=== PATIENT | male | born 1940 | race Caucasian/White ===

== ENCOUNTER → 2017-05-06 | Outpatient (CLI) | payer MEDICARE, OTHER ==
[~2017-05-06] MED LIST: DICL75ER; Hair, Skin & N1 EACH; TRAM50; TRAZ100
== END ==
LOC: LAB SHORT 13:58 → PLD 13:58
DX: C44.42 Squamous cell carcinoma of skin of scalp and neck (principal)
CPT/HCPCS: 88305

== ENCOUNTER 2017-07-13 14:09 | Day surgery (SDC) | payer MEDICARE, OTHER ==
[~2017-07-13] VITALS: Ht 177.8 cm; Wt 84.6 kg
== END 2017-07-13 16:32 | disposition home or self-care (01) ==
LOC: ORSCSDS 14:09
PROVIDERS: Surgery
PROC: 0DJD8ZZ Inspection of Lower Intestinal Tract, Via Natural or Artificial Opening Endoscopic (ICD-10-PCS; principal; 2017-07-13 15:30)
DX: Z12.11 Encounter for screening for malignant neoplasm of colon (principal); K57.30 Diverticulosis of large intestine without perforation or abscess without bleeding; I10 Essential (primary) hypertension; E78.5 Hyperlipidemia, unspecified; Z87.891 Personal history of nicotine dependence; Z79.899 Other long term (current) drug therapy
CPT/HCPCS: J2405; J7120

== ENCOUNTER → 2019-07-30 | Outpatient (CLI) | payer MEDICARE, OTHER ==
[2019-07-30 14:20] LABS: Campylobacter Sp Not Detected (NOT DETECT)
[2019-07-30 14:21] LABS: Adenovirus F 40/41 Not Detected (NOT DETECT); Astrovirus Not Detected (NOT DETECT); Cryptosporidium Not Detected (NOT DETECT); Cyclospora Cayetanensis Not Detected (NOT DETECT); E. Coli O157 Not Detected (NOT DETECT); Entamoeba Histolytica Not Detected (NOT DETECT); Enteroaggregative E. coli-EAEC Not Detected (NOT DETECT); Enteropathogenic E. coli-EPEC Not Detected (NOT DETECT); Enterotoxigenic E. coli-ETEC Not Detected (NOT DETECT); Giardia Lamblia Not Detected (NOT DETECT); Norovirus GI/GII Not Detected (NOT DETECT); Plesiomonas Shigelloides Detected (NOT DETECT); Rotavirus A Not Detected (NOT DETECT); Salmonella Sp Not Detected (NOT DETECT); Sapovirus Not Detected (NOT DETECT); Shiga Toxin-prod E. coli-STEC Not Detected (NOT DETECT); Shigella/Enteroin E. coli-EIEC Not Detected (NOT DETECT); Vibrio Cholerae Not Detected (NOT DETECT); Vibrio Sp Not Detected (NOT DETECT); Yersinia Enterocolitica Not Detected (NOT DETECT)
== END | disposition home or self-care (01) ==
LOC: LAB EV 05:30 → LAB SHORT 05:30
PROVIDERS: Physician Assistant Medical
DX: R19.7 Diarrhea, unspecified (principal)
CPT/HCPCS: 0097U

== ENCOUNTER → 2020-11-16 | Outpatient (CLI) | payer MEDICARE, OTHER ==
[~2020-11-16] MED LIST changes: +MICROZIDE12.5 MG; +PANT20 PO; +POTA10T PO
[2020-11-16 13:31] LABS: BASOPHILS ABSOLUTE AUTO 0.05 K/mm3 (0.00-0.23); BASOPHILS PERCENT AUTO 0 % (0-2); EOSINOPHILS ABSOLUTE AUTO 0.25 K/mm3 (0.00-0.68); EOSINOPHILS PERCENT AUTO 2 % (0-6); Hematocrit 42.9 % (37.0-53.0); Hemoglobin 14.3 g/dL (13.5-17.5); IMMATURE GRAN ABSOLUTE AUTO 0.03 K/mm3 (0.00-0.10); IMMATURE GRAN PERCENT AUTO 0 % (0-1); LYMPHOCYTES PERCENT AUTO 20 % (21-46); MONOCYTES ABSOLUTE AUTO 0.94 K/mm3 (0.16-1.47); MONOCYTES PERCENT AUTO 8 % (4-13); Mean Corpuscular HGB 29.1 pg (26.0-34.0); Mean Corpuscular HGB Conc 33.3 g/dL (31.5-36.5); Mean Corpuscular Volume 87 fL (80-100); Mean Platelet Volume 10.4 fL (9.1-12.4); NEUTROPHILS ABSOLUTE AUTO 8.49 K/mm3 (1.96-9.15); NEUTROPHILS PERCENT AUTO 70 % (41-73); Platelet Count 317 K/mm3 (150-400); RDW Coefficient Variation 13.4 % (11.7-14.2); RDW Standard Deviation 42.9 fL (35.1-46.3); Red Blood Cell Count 4.91 M/mm3 (4.30-5.90); White Blood Cell Count 12.16 K/mm3 (4.00-11.30)
[2020-11-16 14:12] LABS: Alanine Aminotransfer (ALT/SGP 23 U/L (12-78); Albumin, Blood 3.5 g/dL (3.4-5.0); Alk Phos 101 U/L (50-136); Anion Gap 6 mmol/L (6-16); Aspartate Aminotrans (AST/SGOT 20 U/L (12-37); Bilirubin, Total 0.4 mg/dL (0.1-1.0); Blood Urea Nitrogen 19 mg/dL (8-24); CO2, Blood 24 mmol/L (21-32); Chloride, Blood 110 mmol/L (98-108); Creatinine, Blood 1.12 mg/dL (0.60-1.20); Globulin, Blood 3.6 g/dL (2.2-4.0); Glomerular Filtration Rate >60 (60-); Glucose, Blood 110 mg/dL (70-99); Potassium, Blood 4.6 mmol/L (3.5-5.5); Sodium, Blood 140 mmol/L (136-145); Total Protein, Blood 7.1 g/dL (6.4-8.2)
== END | disposition home or self-care (01) ==
LOC: LAB SHORT 12:23 → LAB 12:23
PROVIDERS: Physician Assistant
DX: R03.0 Elevated blood-pressure reading, without diagnosis of hypertension (principal)
CPT/HCPCS: 80053; 85025

== ENCOUNTER → 2021-02-28 | Outpatient (CLI) | payer MEDICARE, OTHER ==
[2021-02-28 15:00] LABS: BASOPHILS ABSOLUTE AUTO 0.05 K/mm3 (0.00-0.23); BASOPHILS PERCENT AUTO 0 % (0-2); EOSINOPHILS ABSOLUTE AUTO 0.37 K/mm3 (0.00-0.68); EOSINOPHILS PERCENT AUTO 3 % (0-6); Hematocrit 42.9 % (37.0-53.0); IMMATURE GRAN ABSOLUTE AUTO 0.03 K/mm3 (0.00-0.10); IMMATURE GRAN PERCENT AUTO 0 % (0-1); LYMPHOCYTES ABSOLUTE AUTO 2.34 K/mm3 (0.84-5.20); LYMPHOCYTES PERCENT AUTO 20 % (21-46); MONOCYTES ABSOLUTE AUTO 0.86 K/mm3 (0.16-1.47); MONOCYTES PERCENT AUTO 7 % (4-13); Mean Corpuscular HGB 28.6 pg (26.0-34.0); Mean Corpuscular HGB Conc 32.6 g/dL (31.5-36.5); Mean Corpuscular Volume 88 fL (80-100); Mean Platelet Volume 10.6 fL (9.1-12.4); NEUTROPHILS ABSOLUTE AUTO 7.98 K/mm3 (1.96-9.15); NEUTROPHILS PERCENT AUTO 69 % (41-73); Platelet Count 324 K/mm3 (150-400); RDW Coefficient Variation 14.4 % (11.7-14.2); White Blood Cell Count 11.63 K/mm3 (4.00-11.30)
[2021-02-28 15:14] LABS: Alanine Aminotransfer (ALT/SGP 23 U/L (12-78); Albumin, Blood 3.1 g/dL (3.4-5.0); Albumin/Globulin Ratio 0.8 (0.8-1.8); Alk Phos 95 U/L (50-136); Anion Gap 6 mmol/L (6-16); Aspartate Aminotrans (AST/SGOT 26 U/L (12-37); Bilirubin, Total 0.4 mg/dL (0.1-1.0); Blood Urea Nitrogen 16 mg/dL (8-24); Bun/Creatinine Ratio 13.7 (12.0-20.0); CO2, Blood 25 mmol/L (21-32); Calcium, Blood 8.8 mg/dL (8.5-10.1); Chloride, Blood 109 mmol/L (98-108); Creatinine, Blood 1.17 mg/dL (0.60-1.20); Globulin, Blood 3.8 g/dL (2.2-4.0); Glomerular Filtration Rate >60 (60-); Glucose, Blood 117 mg/dL (70-99); Potassium, Blood 4.3 mmol/L (3.5-5.5); Sodium, Blood 140 mmol/L (136-145); Total Protein, Blood 6.9 g/dL (6.4-8.2)
== END | disposition home or self-care (01) ==
LOC: LAB SHORT 09:50 → LAB 09:50
PROVIDERS: Physician Assistant
DX: D72.829 Elevated white blood cell count, unspecified (principal); Z79.899 Other long term (current) drug therapy
CPT/HCPCS: 80053; 85025

== ENCOUNTER 2024-07-14 10:31 | Day surgery (SDC) | payer MEDICARE, OTHER ==
[~2024-07-14] VITALS: Ht 175.3 cm; Wt 68.8 kg
[~2024-07-14 10:31] MED LIST changes: +Lactated Ringer's 1,000 ML IV ONE; -TRAZ100; +TRAZ50 PO; +propofoL 50 ML IV ONE
[2024-07-14] MEDS ORDERED: Vitamin D1000 UNI1 PO (11:03)
[2024-07-14] MEDS ORDERED: MAGNESIUM CITR125 MG (11:03)
[2024-07-14] MEDS ORDERED: LORA10ER PO (11:04)
[2024-07-14] MEDS ORDERED: Lactated Ringer's 1,000 ML IV ONE ×3 (11:34→14:20)
[2024-07-14] MEDS ORDERED: Ondansetron HCl 2 MG / ML 2ML Vial ONE (13:40)
[2024-07-14] MEDS ORDERED: propofoL 50 ML IV ONE (13:40)
[2024-07-14 15:31] VITALS: BP 106/66
--- NOTE | 2024-07-14 15:41 | NUR ---
07/14/24 1541 Stephan Hernandez 3 LEAD EKG SHOWED CONVERSION INTO AFIB. NO PHX OF AFIB. ORDERED 12 LEAD EKG IN STEP-DOWN.
--- NOTE | 2024-07-14 15:52 | NUR ---
07/14/24 1552 Stephan Hernandez 12 LEAD EKG READ AFIB, THIS RN ASKED DR. ARAGON, CLINICAL REVIEWER, FOR SECOND OPINION D/T HR REGULAR ON SPO2 MONITOR, 64-66 HR. AFTER EVALUATION AND ASSESSMENT OF 12 EKG, DR. ARAGON DETERMINIED PT NOT IN AFIB, PT HAS SINUS RHYTHM WITH SINUS ARRHYTHMIA. PT WAS SHIVERING AND STATED THEY WERE "COLD", THIS RN AND CARLA YOUNG BROUGHT PT WARM BLANKETS AND ATTACHED A BEAR HUGGER WARMER UNDER BLANKETS WITH GOOD EFFECT. REPORT GIVEN TO CARLA ZIMMER TO DISCHARGE PATIENT.
[2024-07-15] MEDS ORDERED: Acetaminophen650 M1 PO (09:20)
[2024-07-15] MEDS ORDERED: Vitamin B Comple1 EA PO (09:20)
[2024-07-15] MEDS ORDERED: FLONASE ALLERG9.9 M2 (09:22)
[2024-07-15] MEDS ORDERED: MAGNESIUM CITR125 MG PO (09:24)
== END 2024-07-14 15:33 | disposition home or self-care (01) ==
LOC: ORSCSDS 10:31
PROVIDERS: Internal Medicine Gastroenterology
PROC: 0DB98ZX Excision of Duodenum, Via Natural or Artificial Opening Endoscopic, Diagnostic (ICD-10-PCS; principal; 2024-07-14 12:00)
PROC: 0D7B8ZZ Dilation of Ileum, Via Natural or Artificial Opening Endoscopic (ICD-10-PCS; principal; 2024-07-14 12:00)
PROC: 0DBB8ZX Excision of Ileum, Via Natural or Artificial Opening Endoscopic, Diagnostic (ICD-10-PCS; principal; 2024-07-14 12:00)
PROC: 0DB78ZX Excision of Stomach, Pylorus, Via Natural or Artificial Opening Endoscopic, Diagnostic (ICD-10-PCS; principal; 2024-07-14 12:00)
PROC: 0DBE8ZX Excision of Large Intestine, Via Natural or Artificial Opening Endoscopic, Diagnostic (ICD-10-PCS; principal; 2024-07-14 12:00)
DX: K52.9 Noninfective gastroenteritis and colitis, unspecified (principal); R93.3 Abnormal findings on diagnostic imaging of other parts of digestive tract; K56.699 Other intestinal obstruction unspecified as to partial versus complete obstruction; K44.9 Diaphragmatic hernia without obstruction or gangrene; K57.30 Diverticulosis of large intestine without perforation or abscess without bleeding; K64.4 Residual hemorrhoidal skin tags; K29.80 Duodenitis without bleeding; E78.5 Hyperlipidemia, unspecified; I12.9 Hypertensive chronic kidney disease with stage 1 through stage 4 chronic kidney disease, or unspecified chronic kidney disease; N18.31 Chronic kidney disease, stage 3a; Z79.899 Other long term (current) drug therapy; Z87.891 Personal history of nicotine dependence
CPT/HCPCS: 88305; 88342; 93005; 93010; C1726; J2405; J2704; J7120

== ENCOUNTER 2024-08-02 13:27 | Day surgery (SDC) | payer MEDICARE, OTHER ==
[2024-08-02] VITALS (11 sets, daily range): BP systolic 86–132; BP diastolic 49–81
[~2024-08-02] VITALS: Ht 175.3 cm; Wt 67.9 kg
[~2024-08-02 13:27] MED LIST changes: +ALBU90OI INH; +Acetaminophen650 M1 PO; +FLONASE ALLERG9.9 M2; +LORA10ER PO; -Lactated Ringer's 1,000 ML IV ONE; +MAGNESIUM CITR125 MG; +MAGNESIUM CITR125 MG PO; +TRAM50 PO; +Vitamin B Comple1 EA PO; +Vitamin D1000 UNI1 PO; -propofoL 50 ML IV ONE
[2024-08-02] MEDS ORDERED: Lactated Ringer's 1,000 ML IV SCH (13:40)
[2024-08-02] MEDS ORDERED: CeFAZolin Sodium 2,000 MG VIAL ONE (14:04)
[2024-08-02] MEDS ORDERED: CeFAZolin Sodium 2,000 MG in NS 100 ML IV SCH (14:05)
[2024-08-02] MEDS ORDERED: Bupivacaine 0.5% HCl 5 MG/ML 30MLVIAL ONE (14:28)
--- NOTE | 2024-08-02 14:28 | NUR ---
Ambulatory in Day Surgery. History, Chart, Medications and Allergies reviewed before start of procedure. Patient confirms NPO status and agrees with scheduled surgery. Patient reports completing Chlorhexadine shower X2 prior to admission to hospital. Surgical site prepped with 2% Chlorhexidine cloth wipe. Patient States Post-Procedure ride home has been arranged.
[2024-08-02] MEDS ORDERED: propofoL 20 ML IV ONE (15:06)
[2024-08-02] MEDS ORDERED: Midazolam HCl 1MG / ML 2ML Vial ONE (15:06)
[2024-08-02] MEDS ORDERED: FentaNYL Citrate 50 MCG/ML 2 ML Injection ONE (15:06)
[2024-08-02] MEDS ORDERED: Ondansetron HCl 2 MG / ML 2ML Vial ONE (15:07)
[2024-08-02] MEDS ORDERED: Dexamethasone Sod Phos 10 MG/ML 1ML VIAL ONE (15:07)
[2024-08-02] MEDS ORDERED: Rocuronium Bromide 10 MG/ML 5ML Injection IV ONE ×2 (15:07→16:50)
[2024-08-02] MEDS ORDERED: Bupivacaine 0.25% Epi 1:200000 30 ML Vial ONE (15:09)
[2024-08-02] MEDS ORDERED: HYDROmorphone HCl 0.5 MG/0.5 ML SYR ONE (15:32)
[2024-08-02] MEDS ORDERED: Albuterol 2.5 MG/3 ML VIAL INH PRN (15:35)
[2024-08-02] MEDS ORDERED: Prochlorperazine Edisylate 10 mg Vial IV PRN (15:35)
[2024-08-02] MEDS ORDERED: Ondansetron HCl 2 MG / ML 2ML Vial IV PRN (15:35)
[2024-08-02] MEDS ORDERED: HYDROmorphone HCl/Pf 1MG SYR IV PRN (15:35)
[2024-08-02] MEDS ORDERED: FentaNYL Citrate 50 MCG/ML 2 ML Injection IV PRN ×2 (15:35→15:40)
[2024-08-02] MEDS ORDERED: HYDROmorphone HCl 0.5 MG/0.5 ML SYR IV PRN (15:35)
[2024-08-02] MEDS ORDERED: ePHEDrine Sulfate 50 MG/ML 1ML Injection IV PRN (15:40)
[2024-08-02] MEDS ORDERED: Sugammadex Sodium 200 MG/2ML SDV (100 MG/ML) ONE (16:52)
[2024-08-02] MEDS ORDERED: OxyCODONE 5 mg/Acetamin 325 mg TABLET PO PRN (17:40)
--- NOTE | 2024-08-02 18:15 | NUR ---
PATIENT ORIENTED. DISCHARGE PAPERWORK PROVIDED. IV D/C, HUB INTACT. PATIENT AND SPOUSE AWARE OF INSTRUCTIONS. RIDE PROVIDED BY SPOUSE. WHEEL CHAIR OUT TO CAR. BELONGINGS WITH PATIENT.
== END 2024-08-02 23:16 | disposition home or self-care (01) ==
LOC: ORSCMMR 13:27 → ORD 15:00 → ORSCMMR 15:00
PROVIDERS: Surgery
PROC: 0YU54JZ Supplement Right Inguinal Region with Synthetic Substitute, Percutaneous Endoscopic Approach (ICD-10-PCS; principal; 2024-08-02 15:00)
PROC: 0YU74JZ Supplement Right Femoral Region with Synthetic Substitute, Percutaneous Endoscopic Approach (ICD-10-PCS; principal; 2024-08-02 15:00)
PROC: 3E0T3BZ Introduction of Anesthetic Agent into Peripheral Nerves and Plexi, Percutaneous Approach (ICD-10-PCS; principal; 2024-08-02 15:00)
PROC: 8E0W4CZ Robotic Assisted Procedure of Trunk Region, Percutaneous Endoscopic Approach (ICD-10-PCS; principal; 2024-08-02 15:00)
DX: K40.30 Unilateral inguinal hernia, with obstruction, without gangrene, not specified as recurrent (principal); K41.30 Unilateral femoral hernia, with obstruction, without gangrene, not specified as recurrent; K66.0 Peritoneal adhesions (postprocedural) (postinfection); E78.5 Hyperlipidemia, unspecified; I12.9 Hypertensive chronic kidney disease with stage 1 through stage 4 chronic kidney disease, or unspecified chronic kidney disease; N18.9 Chronic kidney disease, unspecified; J43.9 Emphysema, unspecified; Z79.899 Other long term (current) drug therapy; Z87.891 Personal history of nicotine dependence
CPT/HCPCS: C1781; J0690; J1100; J1171; J2250; J2405; J2704; J3010; J7120

== ENCOUNTER 2024-10-04 03:42 | Day surgery (SDC) | payer MEDICARE, OTHER ==
[~2024-10-04] VITALS: Wt 70.4 kg
[2024-10-04] MEDS ORDERED: Infliximab-DYYB 400 MG in NS 250 ML IV SCH (07:00)
[2024-10-04] MEDS ORDERED: Acetaminophen 325 MG TABLET PO SCH (07:15)
[2024-10-04] MEDS ORDERED: DiphenhydrAMINE HCL 25 MG Cap PO SCH (07:20)
[2024-10-04] MEDS ORDERED: Hydrocortisone Sod Succinate 250 MG Vial IV SCH (07:20)
[2024-10-04] MEDS ORDERED: Hydrocortisone Sod Succinate 100 MG Vial IV SCH (07:25)
[2024-10-04 08:05] VITALS: BP 120/74
[2024-10-04 08:59] VITALS: BP 101/62
[2024-10-04 09:14] VITALS: BP 97/67
[2024-10-04 09:31] VITALS: BP 101/66
[2024-10-04 09:47] VITALS: BP 102/66
[2024-10-04 10:04] VITALS: BP 105/63
== END 2024-10-04 10:50 | disposition home or self-care (01) ==
LOC: ATC 03:42
DX: K50.00 Crohn's disease of small intestine without complications (principal); I12.9 Hypertensive chronic kidney disease with stage 1 through stage 4 chronic kidney disease, or unspecified chronic kidney disease; N18.9 Chronic kidney disease, unspecified; E78.5 Hyperlipidemia, unspecified; K21.9 Gastro-esophageal reflux disease without esophagitis; K44.9 Diaphragmatic hernia without obstruction or gangrene; Z79.899 Other long term (current) drug therapy; Z88.0 Allergy status to penicillin
CPT/HCPCS: 96375; 96413; 96415; A9270; J1720; J7050; Q5103

== ENCOUNTER 2024-11-18 03:32 | Day surgery (SDC) | payer MEDICARE, OTHER ==
[~2024-11-18] VITALS: Wt 68.7 kg
[2024-11-18] MEDS ORDERED: Infliximab-DYYB 400 MG in NS 250 ML IV SCH (06:00)
[2024-11-18] MEDS ORDERED: DiphenhydrAMINE HCL 25 MG Cap PO SCH (06:50)
[2024-11-18] MEDS ORDERED: Acetaminophen 325 MG TABLET PO SCH (06:50)
[2024-11-18] MEDS ORDERED: Hydrocortisone Sod Succinate 100 MG Vial IV SCH (06:50)
[2024-11-18 09:08] VITALS: BP 112/64
== END 2024-11-18 11:33 | disposition home or self-care (01) ==
LOC: ATC 03:32
DX: K50.00 Crohn's disease of small intestine without complications (principal); I12.9 Hypertensive chronic kidney disease with stage 1 through stage 4 chronic kidney disease, or unspecified chronic kidney disease; N18.9 Chronic kidney disease, unspecified; K21.9 Gastro-esophageal reflux disease without esophagitis; Z87.891 Personal history of nicotine dependence
CPT/HCPCS: 96413; 96415; J7050; Q5103

== ENCOUNTER 2025-01-13 01:49 | Day surgery (SDC) | payer MEDICARE, OTHER ==
[~2025-01-13] VITALS: Wt 71.9 kg
[2025-01-13 08:48] VITALS: BP 122/73
== END 2025-01-13 11:23 | disposition home or self-care (01) ==
LOC: ATC 01:49
DX: K50.00 Crohn's disease of small intestine without complications (principal); I12.9 Hypertensive chronic kidney disease with stage 1 through stage 4 chronic kidney disease, or unspecified chronic kidney disease; N18.9 Chronic kidney disease, unspecified; K21.9 Gastro-esophageal reflux disease without esophagitis; E78.5 Hyperlipidemia, unspecified; Z87.891 Personal history of nicotine dependence; Z79.899 Other long term (current) drug therapy; Z88.0 Allergy status to penicillin
CPT/HCPCS: 96413; 96415; J7050; Q5103

== ENCOUNTER 2025-03-10 08:06 | Day surgery (SDC) | payer MEDICARE, OTHER ==
[~2025-03-10] VITALS: Wt 71.5 kg
[2025-03-10 08:56] VITALS: BP 131/75
== END 2025-03-10 12:02 | disposition home or self-care (01) ==
LOC: ATC 08:06
DX: K50.00 Crohn's disease of small intestine without complications (principal); I12.9 Hypertensive chronic kidney disease with stage 1 through stage 4 chronic kidney disease, or unspecified chronic kidney disease; N18.9 Chronic kidney disease, unspecified; K21.9 Gastro-esophageal reflux disease without esophagitis; E78.5 Hyperlipidemia, unspecified; Z79.899 Other long term (current) drug therapy; Z87.891 Personal history of nicotine dependence; Z88.0 Allergy status to penicillin
CPT/HCPCS: 86140; 96413; 96415; J7050; Q5103

== ENCOUNTER → 2025-03-12 | Outpatient (CLI) | payer MEDICARE, OTHER ==
[2025-03-13 14:30] LABS: Campylobacter Sp Not Detected (NOT DETECT); E. Coli O157 Not Detected (NOT DETECT); Enteroaggregative E. coli-EAEC Not Detected (NOT DETECT); Enteropathogenic E. coli-EPEC Not Detected (NOT DETECT); Enterotoxigenic E. coli-ETEC Not Detected (NOT DETECT); Salmonella Sp Not Detected (NOT DETECT); Shiga Toxin-prod E. coli-STEC Not Detected (NOT DETECT); Shigella/Enteroin E. coli-EIEC Not Detected (NOT DETECT); Vibrio Sp Not Detected (NOT DETECT)
[2025-03-16 13:15] LABS: CALPROTECTIN,FECAL 44 ug/g (<=49)
== END ==
LOC: LAB SHORT 17:00 → LAB 17:00
PROVIDERS: Physician Assistant Medical
DX: K50.119 Crohn's disease of large intestine with unspecified complications (principal)
CPT/HCPCS: 83993; 87507

== ENCOUNTER 2025-04-14 01:15 | Day surgery (SDC) | payer MEDICARE, OTHER ==
[2025-04-14 09:00] VITALS: BP 123/79
[2025-04-14] MEDS ORDERED: INFLECTRA100 MG IV (10:25)
== END 2025-04-14 10:43 | disposition home or self-care (01) ==
LOC: ATC 01:15
DX: K50.00 Crohn's disease of small intestine without complications (principal); I12.9 Hypertensive chronic kidney disease with stage 1 through stage 4 chronic kidney disease, or unspecified chronic kidney disease; N18.9 Chronic kidney disease, unspecified; K21.9 Gastro-esophageal reflux disease without esophagitis; E78.5 Hyperlipidemia, unspecified; Z88.0 Allergy status to penicillin; Z87.891 Personal history of nicotine dependence
CPT/HCPCS: 96413; J7050; Q5103